=== PATIENT | female | born 1945 | race Asian ===

== ENCOUNTER 2018-01-04 23:48 | Emergency (ER) | payer MEDICARE ==
[~2018-01-04] VITALS: Ht 154.9 cm; Wt 65.8 kg
[2018-01-05] MEDS ORDERED: SODIUM CHLORIDE 0.9% 1,000 ML IVB ONE (00:18)
[2018-01-05] MEDS ORDERED: MORPHINE SULF INJ 2 MG/ML SYRINGE 1ML IV PRN (00:30)
[2018-01-05] MEDS ORDERED: ONDANSETRON HCL 4 MG/2 ML VIAL IV ONE (00:30)
[2018-01-05] MEDS ORDERED: MORPHINE SULFATE 4 MG/ML SYR/VIAL ONE (00:43)
[2018-01-05 01:15] LABS: Urine Bacteria NONE SEEN /hpf (None Seen); Urine Blood Negative /uL (Negative); Urine Hyaline Cast FEW /lpf (0 - 2); Urine Mucus FEW (None Seen); Urine Specific Gravity 1.022 (1.001-1.035); Urine WBC 4 /hpf (0 - 5)
[2018-01-05 01:52] LABS: Basophils # (auto) 0.1 uL; Basophils % (auto) 0.5 % (0.0-2.0); Eosinophils # (auto) 0 uL; Eosinophils % (auto) 0.1 % (0.0-7.0); Hematocrit 36.7 % (36.0-46.0); Hemoglobin 12.2 g/dL (12.2-16.2); Lymphocytes # (auto) 0.2 uL; Lymphocytes % (auto) 1.5 % (10.0-50.0); Mean Corpuscular Hemoglobin 32.5 pg (28.0-32.0); Mean Corpuscular Hgb Conc. 33.4 g/dL (32.0-36.0); Mean Corpuscular Volume 97.3 fL (80.0-100.0); Monocytes # (auto) 0.6 uL; Monocytes % (auto) 4.3 % (0.0-12.0); Neutrophils # (auto) 13.4 uL; Neutrophils % (auto) 93.6 % (37.0-80.0); Platelet Count (auto) 277 10^3/uL (140-450); Red Blood Cells 3.77 10^6/uL (4.0-5.20); Red Cell Distribution Width 13.4 % (11.8-14.3); White Blood Cell 14.3 10^3/uL (4.4-10.8)
[2018-01-05 02:03] LABS: Albumin 3.1 g/dL (3.4-5.0); BUN/Creatinine Ratio 26.3; Calcium 7.6 mg/dL (8.5-10.1); Magnesium 1.6 mg/dL (1.6-2.6); Potassium 3.5 mmol/L (3.5-5.1)
[2018-01-05 02:05] LABS: Bilirubin, Total 0.5 mg/dL (0.2-1.0); Total Protein 6.3 g/dL (6.4-8.2)
[2018-01-05 02:15] LABS: INR 0.95 (0.9-1.15); Partial Thromboplastin Time 22.8 sec (22.64-33.71); Prothrombin Time 10.4 sec (9.37-12.3)
[2018-01-05] MEDS ORDERED: DIPHENOXYLATE W/ATROPINE 2.5 MG TAB PO ONE (03:15)
[2018-01-05] MEDS ORDERED: SODIUM CHLORIDE 0.9% 1,000 ML IV ONE (03:30)
[2018-01-05 05:28] VITALS: BP 93/49
== END 2018-01-05 05:34 | disposition home or self-care (01) ==
LOC: EDBD 23:48 → ER 23:48
DX: R10.13 Epigastric pain (principal); R11.2 Nausea with vomiting, unspecified
CPT/HCPCS: 36415; 74176; 80053; 81001; 82150; 83690; 83735; 85025; 85610; 85730; 93005; 94761; 96361; 96374; 96375; 99285; J2270; J2405; J7030

== ENCOUNTER 2018-01-30 03:30 | Emergency (ER) | payer MEDICARE ==
[~2018-01-30] VITALS: Ht 152.4 cm; Wt 54.4 kg
[2018-01-30 03:37] VITALS: BP 128/71
[2018-01-30 04:28] LABS: Urine Bacteria FEW /hpf (None Seen); Urine Blood 2+ /uL (Negative); Urine Mucus FEW (None Seen); Urine Specific Gravity 1.016 (1.001-1.035); Urine WBC 479 /hpf (0 - 5)
[2018-01-30] MEDS ORDERED: PHENAZOPYRIDINE HCL 100 MG TAB PO ONE (08:45)
[2018-01-30] MEDS ORDERED: cefTRIAXone SOD 1,000 MG VL IM ONE (08:45)
== END 2018-01-30 09:26 | disposition home or self-care (01) ==
LOC: ER 03:31
DX: N39.0 Urinary tract infection, site not specified (principal)
CPT/HCPCS: 81001; 96372; 99283; J0696